=== PATIENT | female | born 1990 | race Caucasian/White ===

== ENCOUNTER 2017-11-24 12:03 | Emergency (ER) | payer OTHER ==
[~2017-11-24] VITALS: Ht 177.8 cm; Wt 73.4 kg
[~2017-11-24 12:03] MED LIST: ZOFRAN4 MG PO
[2017-11-24 13:06] LABS: HEMATOCRIT 39.5 % (36.0-46.0); HEMOGLOBIN 13.6 G/DL (11.9-15.5); MCH 30.8 PG (29.0-34.0); MCHC 34.4 G/DL (30.0-36.0); MCV 89.6 FL (83-99); PLATELET COUNT 273 K/uL (156-360); RBC DIS.WIDTH-CV 11.8 % (11.8-14.6); RBC DIS.WIDTH-SD 38.5 % (39-53); RED BLOOD COUNT 4.41 M/uL (3.80-5.20); WHITE BLOOD COUNT 8.4 K/uL (4.1-10.2)
[2017-11-24 13:16] LABS: CHLORIDE 106 mEq/L (99-109); POTASSIUM 3.4 mEq/L (3.7-5.4); SODIUM 141 mEq/L (136-147)
[2017-11-24 13:18] LABS: GLUCOSE 88 mg/dL (70-99)
[2017-11-24 13:22] LABS: CREATININE 0.7 mg/dL (0.6-1.3); GFR ESTIMATE (CALCULATED) > 59 mL/min/
[2017-11-24 13:23] LABS: UREA NITROGEN (BUN) 6 mg/dL (9-23)
[2017-11-24 13:30] LABS: TROP-I INTERPRETATION NEGATIVE; TROPONIN-I < 0.01 ng/mL (0.0-0.30)
[2017-11-24 13:41] LABS: D-DIMER ELISA < 150.00 ng/mLDDU (<230)
[2017-11-24 13:45] LABS: QUANTITATIVE HCG < 4.0 MIU/ML
[2017-11-24] MEDS ORDERED: MOTRIN600 MG PO (14:06)
[2017-11-24 14:23] VITALS: BP 114/76
== END 2017-11-24 14:24 | disposition home or self-care (01) ==
LOC: EME 12:03
PROVIDERS: Physician Assistant
DX: R07.89 Other chest pain (principal); Z88.0 Allergy status to penicillin; Z88.6 Allergy status to analgesic agent; Z88.5 Allergy status to narcotic agent
CPT/HCPCS: 71046; 80048; 84484; 84702; 85027; 85379; 93005; 99281; 99284